=== PATIENT | female | born 1940 | race Caucasian/White ===

== ENCOUNTER → 2016-09-09 | Outpatient (CLI) | payer MEDICARE, OTHER ==
[~2016-09-09] MED LIST: COLACE 100MG C100 MG PO; NORVASC5 MG PO; PROTONIX 40 MG40 M1 PO
== END ==
LOC: KOH-I 15:28
DX: M25.562 Pain in left knee (principal)
CPT/HCPCS: 73562

== ENCOUNTER → 2020-05-23 | Outpatient (CLI) | payer MEDICARE, OTHER ==
[~2020-05-23] MED LIST changes: +CEFUROXIME500 MG PO; +CRESTOR5 MG PO; +DONEPEZIL HCL5 MG PO; +ECOTRIN81 MG PO; +GLUCOPHAGE 500500 MG PO; +HYDRALAZINE HCL25 MG PO; +JANUVIA100 MG PO; +K-DUR TAB 20 M20 MEQ PO; +LACTINEX TABLET1 EA PO; +LASIX20 MG PO; +LOPRESSOR 25 MG25 MG PO; +NORCO 5-325 TA1 EACH PO; +OMEPRAZOLE20 MG PO; +OMNICEF 300 MG300 MG PO; +POTASSIUM CHLO10 MEQ PO; +REQUIP0.25 MG PO; +SYNTHROID 100100 MCG PO; +VITAMIN B-121000 MC2 SL; +ZOFRAN 4 MG TAB4 MG PO; +ZYLOPRIM 300 M300 MG PO
== END ==
LOC: CT 09:44
PROVIDERS: Family Medicine
DX: R10.30 Lower abdominal pain, unspecified (principal)
CPT/HCPCS: 36415; 80048; Q9967

== ENCOUNTER 2020-07-11 12:41 | Inpatient (IN) | payer MEDICARE, OTHER ==
[~2020-07-11] VITALS: Ht 152.4 cm; Wt 74.4 kg
[~2020-07-11 12:41] MED LIST changes: -DONEPEZIL HCL5 MG PO; -HYDRALAZINE HCL25 MG PO; -K-DUR TAB 20 M20 MEQ PO; -LACTINEX TABLET1 EA PO; -LOPRESSOR 25 MG25 MG PO; -OMNICEF 300 MG300 MG PO; -REQUIP0.25 MG PO; -VITAMIN B-121000 MC2 SL; -ZOFRAN 4 MG TAB4 MG PO
[2020-07-11 14:55] LABS: HEMOGLOBIN 13.4 gm/dl (12.3-15.3); RED BLOOD COUNT 3.85 M/UL (4.00-5.10); WHITE BLOOD COUNT 7.4 K/UL (4.5-11.0)
[2020-07-11 15:58] LABS: BUN/CREATININE RATIO 23 (0-10)
[2020-07-11] MEDS ORDERED: REQUIP0.25 MG PO (19:13)
[2020-07-11] MEDS ORDERED: K-DUR TAB 20 M20 MEQ PO (19:14)
[2020-07-11] MEDS ORDERED: VITAMIN B-121000 MC2 SL (19:15)
[2020-07-11] MEDS ORDERED: LOPRESSOR 25 MG25 MG PO (19:17)
[2020-07-12 04:46] LABS: HEMOGLOBIN 10.7 gm/dl (12.3-15.3); RED BLOOD COUNT 3.14 M/UL (4.00-5.10); WHITE BLOOD COUNT 5.2 K/UL (4.5-11.0)
[2020-07-12 04:55] LABS: BUN/CREATININE RATIO 20 (0-10)
[2020-07-13 03:43] LABS: HEMOGLOBIN 10.2 gm/dl (12.3-15.3); RED BLOOD COUNT 3.01 M/UL (4.00-5.10)
[2020-07-13 03:47] LABS: WHITE BLOOD COUNT 3.8 K/UL (4.5-11.0)
[2020-07-13 04:08] LABS: BUN/CREATININE RATIO 14 (0-10)
--- NOTE | 2020-07-13 10:50 | NUR ---
1030: RN VERIFIED WITH PATIENTS POA/DAUGHTER SHALOM UNGER THAT PATIENT IS A DNR/DNI. DAUGHTER ALSO HAVING PATIENTS POA PAPERS BROUGHT TO THE HOSPITAL TODAY, FOR COPY TO BE PLACED ON PATIENTS CHART.
[2020-07-14 03:47] LABS: HEMOGLOBIN 10.2 gm/dl (12.3-15.3); RED BLOOD COUNT 3.01 M/UL (4.00-5.10); WHITE BLOOD COUNT 4.5 K/UL (4.5-11.0)
[2020-07-14 04:24] LABS: BUN/CREATININE RATIO 11 (0-10)
--- NOTE | 2020-07-14 19:44 | NUR ---
CONFIRMED WITH PT'S DAUGHTER SHALOM (POA) THAT THE PT IS SUPPOSED TO BE A DNR/DNI. NOTIFIED . CODE STATUS IS UPDATED IN THE COMPUTER.
[2020-07-15 07:11] LABS: BUN/CREATININE RATIO 15 (0-10)
[2020-07-16 03:44] LABS: RED BLOOD COUNT 3.48 M/UL (4.00-5.10); WHITE BLOOD COUNT 6.1 K/UL (4.5-11.0)
[2020-07-16 04:01] LABS: BUN/CREATININE RATIO 10 (0-10)
[2020-07-16] MEDS ORDERED: LACTINEX TABLET1 EA PO ×2 (11:24→11:35)
[2020-07-16] MEDS ORDERED: OMNICEF 300 MG300 MG PO (11:24)
[2020-07-16] MEDS ORDERED: DONEPEZIL HCL5 MG PO ×2 (11:24→11:35)
[2020-07-16] MEDS ORDERED: HYDRALAZINE HCL25 MG PO (11:24)
[2020-07-16] MEDS ORDERED: ZOFRAN 4 MG TAB4 MG PO (11:24)
--- NOTE | 2020-07-16 15:59 | NUR ---
REPORT CALLED TO [facility] AT THIS TIME. SPOKE WITH ARI PAPPAS
== END 2020-07-16 20:48 | disposition home or self-care (01) | DRG 689 ==
LOC: ER1 12:41 → CDU 17:35 → MED SURG 4 17:36
PROVIDERS: Internal Medicine; Physician Assistant; Physician Assistant Medical; ADMIT Internal Medicine
DX: N30.00 Acute cystitis without hematuria (principal); R53.2 Functional quadriplegia; G93.41 Metabolic encephalopathy; E87.3 Alkalosis; J98.11 Atelectasis; D61.818 Other pancytopenia; F03.90 Unspecified dementia, unspecified severity, without behavioral disturbance, psychotic disturbance, mood disturbance, and anxiety; D75.89 Other specified diseases of blood and blood-forming organs; E11.9 Type 2 diabetes mellitus without complications; B96.20 Unspecified Escherichia coli [E. coli] as the cause of diseases classified elsewhere; E87.6 Hypokalemia; E83.42 Hypomagnesemia; E03.9 Hypothyroidism, unspecified; D50.9 Iron deficiency anemia, unspecified; I10 Essential (primary) hypertension; R19.7 Diarrhea, unspecified; Z20.822 Contact with and (suspected) exposure to COVID-19; Z85.3 Personal history of malignant neoplasm of breast; Z90.710 Acquired absence of both cervix and uterus; Z90.49 Acquired absence of other specified parts of digestive tract; Z82.49 Family history of ischemic heart disease and other diseases of the circulatory system
CPT/HCPCS: 36415; 36600; 70450; 71045; 80048; 80053; 81001; 82140; 82247; 82550; 82553; 82607; 82746; 82803; 82962; 83605; 83735; 83874; 84132; 84439; 84443; 84484; 85025; 85027; 87040; 87077; 87086; 87186; 92526; 92610; 93005; 96365; 96372; 96375; 97110-GP-CQ; 97163; 97530-GP-CQ; 99285; J0360; J0696; J1650; J3475; J3480; J7030; Q9967; U0002